=== PATIENT | male | born 1960 | race Caucasian/White ===

== ENCOUNTER 2017-06-06 14:04 | Emergency (ER) | payer OTHER ==
[~2017-06-06] VITALS: Ht 182.9 cm; Wt 81.0 kg
[~2017-06-06 14:04] MED LIST: ADVA250A INH; CLON0.1T PO; CLON1TAB PO; CYCL1TAB29 PO; GABA100C4 PO; LEVA500T PO; METO50TA PO; NAPR500T PO; OMEP40CA2 PO; PROM25TA5 PO; SIMV40TA PO; SUCR1TAB PO; TRAM50TA PO; VENTAER INH; ZENP1000 PO
[2017-06-06 14:06] VITALS: BP 162/110; PULSE 106; RESP 20; TEMP 98; O2SAT 98
[2017-06-06] MEDS ORDERED: METO50TA PO (15:41)
--- NOTE | 2017-06-06 15:46 | PD ---
HPI Chief Complaint: Injury Time Seen by Provider: 15:46 Travel History International Travel<30 days: No Contact w/Intl Traveler<30days: No Traveled to known affect area: No History of Present Illness HPI 56-year-old male presents to the emergency Department with complaint of worsening of his left shoulder pain. He injured his shoulder 2 months ago by falling on it and he has been being seen at [facility]. A month ago he was told that he had joint separation of the shoulder and was given an arm sling and told it would heal on its own. The patient has not followed up with an orthopedic doctor. He has had worsening of his symptoms with decreased range of motion and strength of the left upper extremity. Says he can only move his left arm with assistance. Denies fever, vomiting. Reports paresthesias to the left hand. Denies loss of sensation. Has not been taking any medications or trying any treatments to relieve the symptoms. Pain is aggravated with movement and palpation. Pain is also constant. Allergies to codeine and penicillin. Has no other medical complaints. No other modifying factors or associated signs and symptoms. PFSH Past Medical History Autoimmune Disease: No Cancer: No Cardiovascular Problems: Yes (HTN) COPD: Yes Diminished Hearing: No Endocrine: No Genitourinary: No Hypertension: Yes Musculoskeletal: Yes (back problems) Neurologic: No Respiratory: Yes (COPD) Immunizations Current: No Myocardial Infarction: Yes Past Surgical History Abdominal Surgery: Yes Appendectomy: Yes Thoracic Surgery: Yes (MESH LINING S/P PNEUMOTHORAX) Other Surgery: Yes (HERNIA REPAIR) Social History Alcohol Use: Yes (DAILY) Tobacco Use: Yes (1/2 PPD) Substance Use: No Allergies-Medications (Allergen,Severity, Reaction): Coded Allergies: Codeine (Verified Allergy, Mild, Hives, 11/14/16) Penicillin (Verified Allergy, Mild, Hives, 11/14/16) Reported Meds & Prescriptions Reported Meds & Active Scripts Active Ibuprofen 800 Mg Tab 800 Mg PO Q6HR PRN Omeprazole 40 Mg Cap 40 Mg PO DAILY Reported Metoprolol Tartrate 50 Mg Tab 50 Mg PO BID Clonidine (Clonidine HCl) 0.1 Mg Tab 0.1 Mg PO DAILY Review of Systems Except as stated in HPI: all other systems reviewed are Neg Physical Exam Narrative GENERAL: Well-nourished, well-developed male patient, in no acute distress SKIN: Warm and dry. HEAD: Atraumatic. Normocephalic. EYES: Pupils equal and round. No scleral icterus. No injection or drainage. ENT: Mucosa pink and moist. Airway patent. NECK: Supple. Trachea midline. CARDIOVASCULAR: Regular rate. RESPIRATORY: No accessory muscle use. GASTROINTESTINAL: Flat. MUSCULOSKELETAL: No obvious deformities. No clubbing. No cyanosis. No edema. 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 Left upper extremity supple and non-tense with 2+ radial pulse and sensory intact and without erythema or edema. NEUROLOGICAL: Awake and alert. Oriented 3. No obvious cranial nerve deficits. Motor grossly within normal limits. Normal speech. PSYCHIATRIC: Appropriate mood and affect; insight and judgment normal. Data Data Last Documented VS Vital Signs Date Time Temp Pulse Resp B/P Pulse Ox O2 Delivery O2 Flow Rate FiO2 06/06/17 14:06 98.0 106 20 162/110 98 Room Air Orders Shoulder, Complete (>2vws) (06/06/17 15:42) Ketorolac Inj (Toradol Inj) (06/06/17 16:00) Orphenadrine Inj (Norflex Inj) (06/06/17 16:00) Sling Cradle Arm (06/06/17 ) Mandatory Outpatient Referral (06/06/17 16:16) Sling Cradle Arm (06/06/17 ) [facility] Medical Decision Making Medical Screen Exam Complete: Yes Emergency Medical Condition: Yes Medical Record Reviewed: Yes Differential Diagnosis Shoulder dislocation, shoulder fracture, shoulder strain, joint separation Narrative Course 56-year-old male with left shoulder pain in the shoulder appears deformed. He had an injury 2 months ago and has been seen at [facility] he was told he did have separation of the joint the patient has had worsening of decreased strength and movement to the left arm. No new or recent injury. Toradol and Norflex administered in the ER. Left shoulder x-ray ordered. 1615: Left shoulder x-ray concludes type III before meals joint separation and clavicle fracture. Arm sling ordered for support. Ibuprofen prescribed for home. Mandatory outpatient referral ordered. Instructed patient to follow-up with orthopedics. Instructed patient to follow up with primary care provider. Patient verbalizes understanding and agreement with treatment plan. Patient is medically cleared and stable for discharge. Discussed reasons to return to the emergency department. Patient agrees with treatment plan. The patients vital signs are stable and the patient is stable for outpatient follow-up and treatment. Patient discharged home, stable and in no acute distress. Diagnosis Primary Impression: Acromioclavicular joint separation, type 3 Qualified Code: S43.102A - Acromioclavicular joint separation, type 3, left, initial encounter Additional Impression: Fracture, clavicle Qualified Code: S42.002A - Closed nondisplaced fracture of left clavicle, unspecified part of clavicle, initial encounter Referrals: Orthopaedic Surgeon Primary Care Physician Patient Instructions: General Instructions, Shoulder Pain (ED) Departure Forms: Tests/Procedures, Work Release Special Instructions: May return back to work when cleared by orthopedics Additional Instructions: Tylenol or ibuprofen as needed and as directed to reduce pain and inflammation Rest, ice, and compress extremity to decrease pain and inflammation Arm sling for support Avoid aggravating activity; increase activity as tolerated Follow-up with primary care provider Follow-up with orthopedics Return to the emergency department immediately with worsening symptoms Med/Other Pt SpecificInfo: Prescription(s) given Scripts Ibuprofen 800 Mg [id number] Mg PO Q6HR PRN (PAIN) #30 TAB Ref 0 Prov:Kaylee Lockhart 06/06/17 Disposition: 01 DISCHARGE HOME Condition: Stable Kaylee Lockhart Jun 06, 2017 15:46
[2017-06-06] MEDS ORDERED: KETOROLAC TROMETHAMINE 60 MG/2 ML (IM) VIAL IM ONE (16:00)
[2017-06-06] MEDS ORDERED: ORPHENADRINE INJ 60 MG/2 ML AMP IM ONE (16:00)
--- NOTE | 2017-06-06 16:04 | RADRPT ---
EXAM DATE/TIME: 06/06/2017 15:51 [facility] COMPARISON: No previous studies available for comparison. INDICATIONS : Left shoulder pain, fell MEDICAL HISTORY : Previous dislocation left shoulder with nondisplaced fracture SURGICAL HISTORY : None. ENCOUNTER: Initial ACUITY: 2 months PAIN SCORE: 8/10 LOCATION: Left Shoulder FINDINGS: Multiple view examination of the left shoulder demonstrates a fracture involving the distal clavicle. Also, there is elevation of the distal clavicle indicating a grade 3 a.c. joint separation. The rest of the bony structures at the shoulder are grossly intact. No joint dislocation at the shoulder.. CONCLUSION: 1. Small fracture involving the distal left clavicle. 2. Grade 3 a.c. joint separation. Gabino Bowie MD on June 06, 2017 at 16:00 Board Certified Radiologist. This report was verified electronically.
[2017-06-06] MEDS ORDERED: IBUP800T23 PO (16:23)
== END 2017-06-06 16:44 | disposition home or self-care (01) ==
LOC: NEPK 14:04
DX: S43.102D Unspecified dislocation of left acromioclavicular joint, subsequent encounter (principal); S42.002D Fracture of unspecified part of left clavicle, subsequent encounter for fracture with routine healing; J44.9 Chronic obstructive pulmonary disease, unspecified; I25.2 Old myocardial infarction; F17.210 Nicotine dependence, cigarettes, uncomplicated; F10.10 Alcohol abuse, uncomplicated; W19.XXXD Unspecified fall, subsequent encounter
CPT/HCPCS: 73030; 96372; 99284; J1885; J2360

== ENCOUNTER 2017-06-15 07:28 | Emergency (ER) | payer OTHER ==
[~2017-06-15] VITALS: Ht 185.4 cm; Wt 78.0 kg
[~2017-06-15 07:28] MED LIST changes: -ADVA250A INH; -CLON1TAB PO; -CYCL1TAB29 PO; -GABA100C4 PO; +IBUP800T23 PO; -LEVA500T PO; -NAPR500T PO; -PROM25TA5 PO; -SIMV40TA PO; -SUCR1TAB PO; -TRAM50TA PO; -VENTAER INH; -ZENP1000 PO
[2017-06-15 07:37] VITALS: BP 146/84; PULSE 75; RESP 18; TEMP 97.6; O2SAT 98
[2017-06-15] MEDS ORDERED: IBUPROFEN 600 MG TAB PO ONE (08:00)
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
[2017-06-18] MEDS ORDERED: AMLO10TA2 PO (15:47)
[2017-06-18] MEDS ORDERED: IBUP800T23 PO (15:50)
[2017-06-18] MEDS ORDERED: OMEP40CA2 PO (15:51)
== END 2017-06-15 09:05 | disposition home or self-care (01) ==
LOC: PHED 07:28
DX: S43.102A Unspecified dislocation of left acromioclavicular joint, initial encounter (principal); Y04.2XXA Assault by strike against or bumped into by another person, initial encounter; Y93.84 Activity, sleeping; Y92.89 Other specified places as the place of occurrence of the external cause; Z59.0 Homelessness
CPT/HCPCS: 73030; 99283

== ENCOUNTER → 2017-07-09 | Outpatient (CLI) | payer OTHER ==
[~2017-07-09] MED LIST changes: +AMLO10TA2 PO; +LEVO25TA4 PO
--- NOTE | 2017-07-09 09:13 | RADRPT ---
EXAM DATE/TIME: 07/09/2017 08:07 [facility] COMPARISON: SHOULDER LEFT COMPLETE (>2VWS), June 15, 2017, 7:56. INDICATIONS : Internal derangement. MEDICAL HISTORY : None. SURGICAL HISTORY : Inguinal hernia repair. Appendectomy. Right shoulder. ENCOUNTER: Subsequent ACUITY: 2 weeks PAIN SCORE: 5/10 LOCATION: Left shoulder TECHNIQUE: Multiplanar, multisequence MRI examination was performed without contrast. FINDINGS: ROTATOR CUFF: There some increased signal within the supraspinatous tendon near its insertion suggestive of some te ndinopathy/tendinosis. However, the supraspinatous tendon appears to be grossly intact. No subacromia l or subdeltoid effusion is demonstrated. There is mild narrowing between the top of the humerus and undersurface of the acromion process. LABRUM: Labrum is within normal limits. MARROW/CARTILAGE: There is some residual red marrow in the shaft of the humerus. Otherwise there is normal signal withi n the bone marrow. There is a subchondral cyst at the articular surface of the shoulder joint consist ed with some degenerative changes. There is some mild narrowing of the joint space. The scapula is gr ossly intact and unremarkable. OTHER: There is evidence of a.c. joint separation. There is soft tissue swelling as well as a focal fluid co llection at the a.c. joint. The focal fluid collection measures 3.5 x 1.0 cm. This is most likely rel ated to the a.c. joint separation. The bony structures of the clavicle and acromion process appear to be grossly intact. CONCLUSION: 1. There appears to be evidence of tendinopathy/tendinosis involving the supraspinatous tendon near i ts insertion. No definite full-thickness tear is demonstrated. 2. Primary degenerative type changes are noted at the shoulder joint 3. A.c. joint separation with soft tissue swelling and effusion at the a.c. joint. 4. There is mild narrowing between the top of the humerus and undersurface of the acromion process. T his is nonspecific but can be seen with shoulder impingement syndrome. Gabino Bowie MD on July 09, 2017 at 9:04 Board Certified Radiologist. This report was verified electronically.
== END ==
LOC: HRAD 06:58
PROVIDERS: ATTEND Orthopaedic Surgery Sports Medicine
DX: S43.122A Dislocation of left acromioclavicular joint, 100%-200% displacement, initial encounter (principal); X58.XXXA Exposure to other specified factors, initial encounter
CPT/HCPCS: 73221

== ENCOUNTER → 2017-07-10 | Outpatient (CLI) | payer OTHER | LOC: CLAB 10:26 | PROVIDERS: ATTEND Family Medicine | DX: R94.6 Abnormal results of thyroid function studies (principal) | CPT/HCPCS: 36415; 84443 ==

== ENCOUNTER → 2017-08-02 | Outpatient (CLI) | payer OTHER ==
[2017-08-02 09:28] LABS: AUTOMATED NEUTROPHIL # 6.9 TH/MM3 (1.8-7.7); BASOPHIL % 0.3 % (0.0-2.0); EOSINOPHIL # 0.2 TH/MM3 (0-0.4); EOSINOPHIL % 1.5 % (0.0-4.0); HEMATOCRIT 41.8 % (39.0-51.0); HEMO FLAGS DIFF FINAL; LYMPH % 36.8 % (9.0-44.0); LYMPHOCYTE # 4.6 TH/MM3 (1.0-4.8); MEAN CELL VOLUME 101.9 FL (80.0-100.0); MEAN CORPUSCULAR HEMOGLOBIN 33.8 PG (27.0-34.0); MEAN CORPUSCULAR HGB CONC 33.2 % (32.0-36.0); MONO % 6.5 % (0.0-8.0); NEUT % 54.9 % (16.0-70.0); PLATELET COUNT 348 TH/MM3 (150-450); RED CELL DISTRIBUTION WIDTH 14.2 % (11.6-17.2); WHITE BLOOD COUNT 12.5 TH/MM3 (4.0-11.0)
[2017-08-02 10:00] LABS: ANION GAP 11 MEQ/L (5-15); AST (GOT) 15 U/L (15-37); BICARBONATE 22.1 MEQ/L (21.0-32.0); BLOOD UREA NITROGEN 14 MG/DL (7-18); CHLORIDE 107 MEQ/L (98-107); GLOMERULAR FILTRATION RATE 59 ML/MIN (>89); GLUCOSE,FASTING 104 MG/DL (74-99); POTASSIUM 3.6 MEQ/L (3.5-5.1); SODIUM (NA) 140 MEQ/L (136-145)
[2017-08-02 10:01] LABS: ALT (GPT) 25 U/L (12-78)
[2017-08-02 10:10] LABS: ALKALINE PHOSPHATASE 60 U/L (45-117); HDL CHOLESTEROL 30.1 MG/DL (40.0-60.0); LDL CHOLESTEROL 103 MG/DL (0-99); TOTAL BILIRUBIN ADULT 0.5 MG/DL (0.2-1.0)
== END ==
LOC: CLAB 08:56
PROVIDERS: ATTEND Family Medicine
DX: E03.9 Hypothyroidism, unspecified (principal); S43.102D Unspecified dislocation of left acromioclavicular joint, subsequent encounter; X58.XXXD Exposure to other specified factors, subsequent encounter
CPT/HCPCS: 36415; 80053; 80061; 84443; 85025

== ENCOUNTER → 2017-09-16 | Day surgery (SDC) | payer OTHER ==
[~2017-09-16] VITALS: Ht 182.9 cm; Wt 79.4 kg
[~2017-09-16] MED LIST changes: +*RESP: ALBUTEROL 2.5 MG/3 ML NEB (PRN) PERIprocedural Use ONLY NEB ONE; +ACETAMINOPHEN 1000 MG/100 ML 100 ML IV ONE; +ACETAMINOPHEN 325 MG TAB PO PRN; +BUPIVACAINE LIPOSOME PF 1.3% 20 ML VIAL ONE; +BUPIVACAINE/EPINEPHRINE 0.5% 50 ML VIAL ONE; +CHLORHEXIDINE GLUCONATE 2 % 1 PACK (2 CLOTHS) TOPICAL PRN; +CHLORHEXIDINE GLUCONATE 4% SOLN 120 ML BTL TOPICAL SCH; +CLINDAMYCIN 600 MG/NS 100 ML IV SCH; +CLINDAMYCIN PHOS 600 MG/4 ML VIAL ONE; +DEXAMETHASONE SOD PHOS 4 MG/ML VIAL IV ONE; +DEXAMETHASONE SOD PHOS PF 10 MG/ML VIAL ONE; +DEXT 5%-NACL 0.45% 1000 ML INJ 1,000 ML IV SCH; +DO NOT ADM ANY ANTICOAGULANT DRUGS PRN; +EPINEPHrine HCL (1:1000) 30 MG/30 ML VIAL ONE; +GLYCOPYRROLATE 1 MG/5 ML SYRINGE IV PUSH ONE; +HYDROmorphone HCL PF 2 MG/ML VIAL ONE; +INSULIN HUMAN REGULAR 1,000 UNITS/10 ML VIAL SQ PRN; +KETOROLAC TROMETHAMINE 30 MG/ML (IVP) VIAL IVP ONE; +LACTATED RINGER'S 1000 ML INJ 1,000 ML IV ONE; +LACTATED RINGER'S 1000 ML IV PRN; +LIDOCAINE HCL 1% PF 5 ML AMPULE OTHER ONE; +METOPROLOL TARTRATE 25 MG TAB PO PRN; +MIDAZOLAM HCL 2 MG/2 ML VIAL IV ONE; +MORPHINE SULFATE 2 MG/ML INJ IV PUSH PRN; +NEOSTIGMINE 3 MG/3 ML SYR IV ONE; +ONDANSETRON HCL 4 MG/2 ML VIAL IV PUSH ONE; +ONDANSETRON HCL 4 MG/2 ML VIAL IV PUSH PRN; +PHENYLEPH/NS 1000 MCG/10 ML SYR IV ONE; +PHENYLEPHRINE HCL 10 MG/ML VIAL IV ONE; +POVIDONE IODINE 5% (ANTISEPSIS KIT) 4 APPLICATIONS EACH NARE PRN; +ROCURONIUM INJ 50 MG/5 ML SYRINGE IV PUSH ONE; +ROPIVACAINE 0.5% PF INJ 30 ML VIAL ONE; +SODIUM CHLOR 0.9% 250 ML INJ 500 ML IV ONE; +SODIUM CHLORID 0.9% 500 ML IV PRN; +SODIUM CHLORIDE 0.9% FLUSH 10 ML FLUSH IV FLUSH PRN; +SODIUM CHLORIDE 0.9% FLUSH 10 ML FLUSH IV FLUSH SCH; +VANCOMYCIN 1000 MG/NS 250 ML (for <70 kg) IV SCH; +VANCOMYCIN HCL 1000 MG VIAL ONE; +ePHEDrine/NS 25 MG/5 ML SYR IV ONE; +oxyCODONE/ACETAMINOPHEN 5 MG/325 MG TAB PO PRN
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
--- NOTE | 2017-09-16 17:50 | RADRPT ---
EXAM DATE/TIME: 09/16/2017 16:39 [facility] COMPARISON: SHOULDER LEFT COMPLETE (>2VWS), June 15, 2017, 7:56. INDICATIONS : Left AC joint repair. OR. MEDICAL HISTORY : None. SURGICAL HISTORY : Appendectomy. Inguinal hernia repair. Right shoulder. ENCOUNTER: Initial ACUITY: 1 day PAIN SCORE: Non-responsive. LOCATION: Left AC joint FINDINGS: 2 spot fluoroscopic images of the left shoulder obtained in the operating room during a procedure dem onstrate reduction of the elevated left distal clavicle. Coracoclavicular distance is now within norm al limits. Densities overlie the distal clavicle and coracoid. CONCLUSION: Improved alignment following acromioclavicular joint repair. Dusty Gooden MD on September 16, 2017 at 17:47 Board Certified Radiologist. This report was verified electronically.
[2017-09-16 18:23] VITALS: BP 106/87; PULSE 83; RESP 18; TEMP 96.3; O2SAT 96
--- NOTE | 2017-09-17 19:31 | EKG ---
Date Performed: 09/16/2017 Time Performed: 12:08:58 PTAGE: 56 years EKG: Sinus rhythm LEFT ANTERIOR FASCICULAR BLOCK Compared to prior tracing no significant change ABNORMAL ECG PREVIOUS TRACING : 02/21/2005 04.23 DOCTOR: Isma Mauro Interpretating Date/Time 09/17/2017 19:30:22
== END | disposition home or self-care (01) ==
LOC: HSDC 10:30
PROVIDERS: ATTEND Orthopaedic Surgery Sports Medicine
DX: S43.102A Unspecified dislocation of left acromioclavicular joint, initial encounter (principal); I10 Essential (primary) hypertension; J44.9 Chronic obstructive pulmonary disease, unspecified; W19.XXXA Unspecified fall, initial encounter
CPT/HCPCS: 01630; 23550; 73020; 76000; 86850; 86900; 86901; 93005; 94664; C1713; J0131; J0171; J1100; J1170; J2250; J2370; J2405; J2710; J2795; J3010; J7050; J7120; J7613; C9290; J3370